=== PATIENT | female | born 1960 | race Caucasian/White ===

== ENCOUNTER 2024-06-29 08:50 | Outpatient (CLI) | payer BC | END 2024-06-29 08:51 | disposition home or self-care (01) | LOC: CSHCT 08:50 | PROVIDERS: ATTEND Physician Assistant Medical | DX: K59.09 Other constipation (principal); Z79.1 Long term (current) use of non-steroidal anti-inflammatories (NSAID); R10.9 Unspecified abdominal pain | CPT/HCPCS: 36415; 74177; 82565 ==